=== PATIENT | female | born 1935 | race Caucasian/White ===

== ENCOUNTER 2020-07-15 09:08 | Emergency (ER) | payer MEDICARE ==
[2020-07-15 10:27] LABS: Hemoglobin 15.2 g/dL (12.0-16.0); Mean Corpuscular HGB CONC 33.1 g/dL (32.0-36.0); Mean Corpuscular Hemoglobin 30.3 pg (27.0-31.0); Mean Corpuscular Volume 91.5 fL (78.0-98.0); Mean Platelet Volume 8.1 fL (7.4-10.4); Platelet Count 222 thou/uL (130-400); Red Blood Cell (RBC) Count 5.03 mill/uL (4.20-5.40)
[2020-07-15] MEDS ORDERED: Morphine 4 MG/ML VIAL ONE ×2 (10:46→14:27)
[2020-07-15] MEDS ORDERED: Ondansetron PF 4 MG/2 ML Vial ONE (10:46)
[2020-07-15 10:49] LABS: ALT (SGPT) 18 U/L (8-55); AST (SGOT) 27 U/L (5-34); Albumin 4.2 g/dL (3.4-4.8); Alkaline Phosphatase 83 U/L (40-110); Anion Gap 17 mmol/L (10-20); BUN (Urea Nitrogen) 22 mg/dL (9.8-20.1); Bilirubin, Total 1.3 mg/dL (0.2-1.2); Calc. Creatinine Clearance 0 mL/min (70-130); Calcium 9.3 mg/dL (7.8-10.44); Carbon Dioxide 22 mmol/L (23-31); Chloride 103 mmol/L (98-107); Glucose 85 mg/dL (83-110); Potassium 4.4 mmol/L (3.5-5.1); Protein, Total 8.2 g/dL (5.8-8.1); Sodium 138 mmol/L (136-145)
[2020-07-15 10:51] LABS: Band 5 % (5-11); Lymphocytes 30 % (21-51); MDiff Complete? YES; Monocytes 9 % (0-10); Neutrophil 55 % (42-75)
== END 2020-07-15 18:53 | disposition short-term general hospital (02) ==
LOC: ERS 09:08
DX: S72.001A Fracture of unspecified part of neck of right femur, initial encounter for closed fracture (principal); I10 Essential (primary) hypertension; Z79.899 Other long term (current) drug therapy; W18.30XA Fall on same level, unspecified, initial encounter; Y92.009 Unspecified place in unspecified non-institutional (private) residence as the place of occurrence of the external cause
CPT/HCPCS: 36415; 71045; 80053; 85025; 93005; 96374; 96375; 96376; J2270; J2405